=== PATIENT | female | born 1985 | race Caucasian/White ===

== ENCOUNTER 2017-12-18 10:04 | Day surgery (SDC) | payer OTHER ==
[2017-12-12 16:01] VITALS: BMI 40.0
--- NOTE | 2017-12-18 04:56 | P.GSHP ---
History of Present Illness H&P Date: 12/18/17 CHIEF COMPLAINT: Cholecystitis HISTORY OF PRESENT ILLNESS: The patient is a 32-year-old female who presents with history of epigastric including right upper quadrant abdominal pain. She underwent diagnostic studies for her gallbladder. Separately her clinical picture was consistent with cholecystitis. Now she presents for surgical intervention. PAST MEDICAL HISTORY: Please see list PAST SURGICAL HISTORY: Please see list MEDICATIONS: Please see list ALLERGIES: Denies. SOCIAL HISTORY: No illicit drug use or recent tobacco use FAMILY HISTORY: Pertinent for gallbladder disease REVIEW OF ORGAN SYSTEMS: CONSTITUTIONAL: No reports of fevers or chills. HEENT: Denies any troubles with the vision or hearing. ENDOCRINE: No reports of hypothyroidism. No diabetes. RESPIRATORY: No recent pneumonias. CARDIOVASCULAR: Denies chest pain or palpitations GI: No blood in stools or constipation. MUSCULOSKELETAL: Has occasional joint pain including back pain. NEURO: No seizure disorders or headaches. No recent stroke. PSYCH: No depression or suicidal ideation. HEMATOLOGIC: No personal or family history of DVTs or pulmonary emboli. PHYSICAL EXAM: VITAL SIGNS: Afebrile vital signs stable GENERAL: Well-developed pleasant in no acute distress. HEENT: No scleral icterus. Extraocular movements grossly intact. Moist buccal mucosa. NECK: Supple without lymphadenopathy. CHEST: Unlabored respirations. Equal bilateral excursions. CARDIOVASCULAR: Regular rate regular rhythm rhythm. Distal 2+ pulses. ABDOMEN: Soft, nondistended. Tender along the epigastrium and right upper quadrant. MUSCULOSKELETAL: No clubbing, cyanosis, or edema. NEURO: Cranial nerves II to XII within normal limits. No focal or lateralizing signs. PSYCH: Alert and oriented to person, place and time. ASSESSMENT: 1. Epigastric and right upper quadrant abdominal pain 2. Chronic cholecystitis 3. Symptomatic gallstones. PLAN: 1. Will need a robotic laparoscopic cholecystectomy possible open. Benefits and risks were described. 2. Heparin for DVT prophylaxis 5000 units. 3. Antibiotic prophylaxis. Past Medical History Past Medical History: No Reported History History of Any Multi-Drug Resistant Organisms: None Reported Past Surgical History: Adenoidectomy, Tonsillectomy Past Anesthesia/Blood Transfusion Reactions: No Reported Reaction Smoking Status: Never smoker - Past Family History Mother Family Medical History: No Reported History Medications and Allergies Home Medications Medication Instructions Recorded Confirmed Type Cetirizine HCl [Zyrtec] 10 mg PO DAILY 12/12/17 12/12/17 History Ethinyl Estradiol/Drospirenone 1 tab PO DAILY 12/12/17 12/12/17 History [Ayse 28 Tablet] Montelukast [Singulair] 10 mg PO HS 12/12/17 12/12/17 History Allergies Allergy/AdvReac Type Severity Reaction Status Date / Time No Known Allergies Allergy Verified 12/12/17 15:56
[~2017-12-18 10:04] MED LIST: DEXAMETHASONE SOD PHOSPHATE 10 MG/ML 1 ML VIAL IV ONE; HEPARIN SODIUM,PORCINE 5,000 UNIT/ML 1 ML VIAL SQ ONE; HYDROmorphone 0.5 MG/0.5 ML SYRINGE IVP PRN; INDOCYANINE GREEN 25 MG VIAL IV STA; LACTATED RINGERS 1,000 ML IV SCH; ONDANSETRON 4 MG/2 ML VIAL IVP ONE; SCOPOLAMINE 1.5MG/72HR PATCH TRANSDERM STA; ceFAZolin IN SWFI 2 GM/20 ML SYRINGE IVP ONE
[2017-12-18 11:03] VITALS: RESP 16
[2017-12-18 11:10] LABS: Basophils % (A) 0 %; Eosinophils # (A) 0.2 k/uL (0-0.7); Eosinophils % (A) 2 %; HCT 38.7 % (34.0-46.0); HGB 13.2 gm/dL (11.4-16.0); Lymphocytes # (A) 2.3 k/uL (1.0-4.8); Lymphocytes % (A) 30 %; MCH 27.6 pg (25.0-35.0); MCV 81.2 fL (80.0-100.0); Mean Platelet Volume 6.6; Monocytes # (A) 0.3 k/uL (0-1.0); Monocytes % (A) 5 %; Neutrophils # (A) 4.5 k/uL (1.3-7.7); Neutrophils % (A) 61 %; Platelet Count 284 k/uL (150-450); RBC 4.77 m/uL (3.80-5.40); WBC 7.4 k/uL (3.8-10.6)
[2017-12-18 11:24] LABS: ALT 21 U/L (9-52); AST 21 U/L (14-36); Albumin 3.7 g/dL (3.5-5.0); Alkaline Phosphatase 103 U/L (38-126); Anion Gap 12 mmol/L; Blood Urea Nitrogen 12 mg/dL (7-17); Calcium 9.7 mg/dL (8.4-10.2); Carbon Dioxide 22 mmol/L (22-30); Chloride 107 mmol/L (98-107); Glucose 85 mg/dL (74-99); Potassium 4.3 mmol/L (3.5-5.1); Sodium 141 mmol/L (137-145); Total Bilirubin 0.4 mg/dL (0.2-1.3)
[2017-12-18] MEDS ORDERED: fentaNYL (PF) 50 MCG/ML 2 ML AMP ONE (11:47)
[2017-12-18] MEDS ORDERED: GLYCOPYRROLATE 0.2 MG/ML 2 ML VIAL ONE (11:47)
[2017-12-18] MEDS ORDERED: SUCCINYLCHOLINE CHLORIDE 100 MG/5 ML SYR IV ONE (11:47)
[2017-12-18] MEDS ORDERED: ROCURONIUM BROMIDE 10 MG/ML 10 ML VIAL IV ONE (11:47)
[2017-12-18] MEDS ORDERED: LIDOCAINE 1% INJ 10MG/ML (20 ML MDV) ONE (11:47)
[2017-12-18] MEDS ORDERED: PROPOFOL 10 MG/ML 20 ML VIAL IV ONE (11:47)
[2017-12-18] MEDS ORDERED: HYDROmorphone (PF) 1 MG/ML ONE (11:47)
[2017-12-18] MEDS ORDERED: NEOSTIGMINE 1 MG/ML 10 ML VIAL ONE (11:47)
[2017-12-18] MEDS ORDERED: MIDAZOLAM 2 MG/2 ML VIAL ONE (11:47)
[2017-12-18] MEDS ORDERED: MORPHINE SULFATE 10 MG/ML SYRINGE ONE (11:47)
[2017-12-18] MEDS ORDERED: BUPIVACAINE (PF) 0.25% 30 ML VIAL SQ ONE (12:28)
[2017-12-18] MEDS ORDERED: LACTATED RINGERS 1,000 ML IV ONE (12:50)
--- NOTE | 2017-12-18 13:14 | P.OP ---
Date of Procedure: 12/18/17 Description of Procedure: SURGEON: MARYURI SORENESN MD SCREEN PRINTING CLOTH SPREADER: MIKE CAMP PREOPERATIVE DIAGNOSES: 1. Chronic cholecystitis. 2. Family history of gallbladder disease. 3. Morbid obesity due to excess calories. 4. Body mass index 40.0 5. Symptomatic gallstones. 6. Right upper quadrant abdominal pain. 7. Asthma. POSTOPERATIVE DIAGNOSES: 1. Chronic cholecystitis. 2. Family history of gallbladder disease. 3. Morbid obesity due to excess calories. 4. Body mass index 40.0 5. Symptomatic gallstones. 6. Right upper quadrant abdominal pain. 7. Asthma. OPERATION: Robotic-assisted da Ron Xi laparoscopic cholecystectomy, multiport with FIRELFY ESTIMATED BLOOD LOSS: 5 mL. SPECIMENS REMOVED: Gallbladder. COMPLICATIONS: None. OPERATIVE FINDINGS: 1. Gallstone filled with multiple 2 cm sized stones. INDICATIONS: The patient is a 32-year-old female who presents with symptomatic gallstones and chronic cholelcystitis. Surgical intervention with a laparoscopic cholecystectomy was described at length including injury to the biliary tree, bleeding, infection, need for further surgery. Informed consent was obtained. Robotic assisted laparoscopic approach was described. Benefits and risks of the procedure including but not limited to bleeding, infection, injury to the biliary tree was described. Informed consent was obtained. DESCRIPTION OF PROCEDURE: Patient was brought to the operating room, placed in supine position. After general induction, the abdomen had been prepped and draped in standard sterile fashion. The robotic da Ron SI system was primed. After a timeout protocol was performed, the patient had been prepped and draped in standard sterile fashion. The patient was injected with indocyanine green. The robot was docked along the right lateral abdomen. The patient was repositioned in reverse Trendelenburg position. Please note prior to docking of the robot; however, a 5 mm 0 degrees laparoscopic trocar entry was performed along the left upper quadrant. Next, two 8 mm robotic ports were placed along the right upper abdomen. The camera 8-mm port was maintained along the epigastrium. Another 8 mm port was placed along the left upper abdominal wall after exchanging the 5 mm port. Please note that the ports were placed at least 10 to 15 cm away from the target anatomy of the gallbladder. Using a grasper for arm 3, a grasper for arm 2, including hook cautery for arm 1 , the robotic system was docked and primed as described. Instruments were interchanged by the ophthalmic medical assistant including hook cautery, Bovie cautery scissors and clip appliers. I had sat at the console. Adhesions were identified along the infundibulum of the gallbladder and addressed using hook cautery including blunt dissection with a long forceps grasper. The gallbladder fundus was retracted over the dome of the liver. Initial attention was brought to the infundibulum which was gently retracted in the inferior lateral approach. Using a grasper, the cystic duct including the cystic artery was carefully skeletonized. FIREFLY was used to identify the cystic duct including common bile duct. All PLASTIC CLIPS were used for the entire case. Using a clip telephone clerk telegraph office 2 large clips were placed proximally, and 1 clip was placed distally along the cystic duct and then cauterized with the cautery. Again care was taken to avoid any injury to the biliary tree as the common bile duct was clearly visualized during this portion of dissection. Next, the cystic artery was cauterized. Electro-Bovie cautery was used to remove the gallbladder from the hepatic fossa without decompression of the gallbladder. Hemostasis was checked and found to be adequate. The robot was undocked. I re-scrubbed into the case. Using a 10 mm Endo Catch bag via the 8 mm port, the specimen was removed from the abdominal cavity after widening the fascia for removal of the gallbladder. Bile spillage occurred from the specimen Endo Catch bag. The port site was cleaned with diluted hydrogen peroxide and normal saline. The 8 mm port site was oversewn using 0 Vicryl including a Daryl Shelley as well. All pneumoperitoneum instruments were evacuated from the abdominal cavity. The incisions were reapproximated using 4-0 Monocryl in an interrupted subcuticular fashion. Please note along the trocar sites, local anesthetic was placed as a field block prior to insertion of all instruments. Optifoam surgical dressing was placed over the gallbladder extraction site including dilute hydrogen peroxide was used to wash the skin. Dermabond was applied to the skin. At the end of the procedure needle, sponge, and instrument count had been verified correct by the test engineering technician. The patient was transferred to postanesthesia care unit in stable condition. Intraoperative films were shared with the patient's family who were very pleased with the level of care. Plan - Discharge Summary New Discharge Prescriptions: No Action Montelukast [Singulair] 10 mg PO HS Ethinyl Estradiol/Drospirenone [Ayse 28 Tablet] 1 tab PO DAILY Cetirizine HCl [Zyrtec] 10 mg PO DAILY Discharge Medication List Cetirizine HCl [Zyrtec] 10 mg PO DAILY 12/12/17 [History] Ethinyl Estradiol/Drospirenone [Ayse 28 Tablet] 1 tab PO DAILY 12/12/17 [History] Montelukast [Singulair] 10 mg PO HS 12/12/17 [History]
[2017-12-18 13:17] VITALS: TEMP 98
[2017-12-18] MEDS ORDERED: diphenhydrAMINE 50 MG/ML 1 ML VIAL IVP ONE (13:22)
[2017-12-18] MEDS ORDERED: PROMETHAZINE INJ 25 MG/ML 1 ML VIAL IVPB ONE (13:28)
[2017-12-18] MEDS ORDERED: HYDROcodone/APAP 5-325MG 1 EACH TAB PO ONE (14:35)
[2017-12-18 14:51] VITALS: BP 99/54; PULSE 87
== END 2017-12-18 15:11 | disposition home or self-care (01) ==
LOC: OR 10:04
PROVIDERS: ATTEND Surgery Plastic and Reconstructive Surgery
DX: K80.10 Calculus of gallbladder with chronic cholecystitis without obstruction (principal); K66.0 Peritoneal adhesions (postprocedural) (postinfection); E66.01 Morbid (severe) obesity due to excess calories; Z68.41 Body mass index [BMI] 40.0-44.9, adult; J45.909 Unspecified asthma, uncomplicated; Z79.3 Long term (current) use of hormonal contraceptives; Z79.899 Other long term (current) drug therapy
CPT/HCPCS: 47562; S2900; 80053; 85025; 88304

== ENCOUNTER → 2018-06-20 | Outpatient (CLI) | payer OTHER ==
--- NOTE | 2018-06-21 10:18 | NM ---
EXAMINATION TYPE: NM thyroid image w uptake DATE OF EXAM: 06/21/2018 COMPARISON: NONE HISTORY: Joaquin thyroiditis TECHNIQUE: Thyroid iodine uptake is calculated and images performed after the oral administration of 318 uCi 1-123 Capsule. FINDINGS: There is normal distribution of activity throughout the gland. The 4 hour iodine uptake is calculated at 14.3% (normal range 8-14%). The 24-hour iodine uptake is calculated at 32.6% (normal r ronen 15-35%). IMPRESSION: thyroid scan and uptake near normal at 4 hours and normal at 24 hours, distribution of ac tivity is normal on images.
== END | disposition home or self-care (01) ==
LOC: RADNMMAIN 08:27
PROVIDERS: ATTEND Internal Medicine Endocrinology, Diabetes & Metabolism
DX: E06.3 Autoimmune thyroiditis (principal); R94.6 Abnormal results of thyroid function studies
CPT/HCPCS: 78014; A9516

== ENCOUNTER 2021-06-17 07:29 | Day surgery (SDC) | payer OTHER ==
[2021-06-10 15:01] VITALS: BMI 38.4
[~2021-06-17 07:29] MED LIST changes: -DEXAMETHASONE SOD PHOSPHATE 10 MG/ML 1 ML VIAL IV ONE; -HEPARIN SODIUM,PORCINE 5,000 UNIT/ML 1 ML VIAL SQ ONE; -HYDROmorphone 0.5 MG/0.5 ML SYRINGE IVP PRN; -INDOCYANINE GREEN 25 MG VIAL IV STA; -ONDANSETRON 4 MG/2 ML VIAL IVP ONE; -SCOPOLAMINE 1.5MG/72HR PATCH TRANSDERM STA; -ceFAZolin IN SWFI 2 GM/20 ML SYRINGE IVP ONE
[2021-06-17 08:01] VITALS: TEMP 98
[2021-06-17] MEDS ORDERED: LIDOCAINE 1% (10MG/ML) FOR IV START INTRADERMA ONE (08:16)
[2021-06-17] MEDS ORDERED: PROPOFOL 10 MG/ML 20 ML VIAL IV ONE (08:29)
--- NOTE | 2021-06-17 08:33 | P.GSHP ---
History of Present Illness H&P Date: 06/17/21 CHIEF COMPLAINT: GERD and colon screen HISTORY OF PRESENT ILLNESS: The patient is a 35-year-old female who presents with gastrointestinal bleeding. Upper and lower endoscopy were offered for further evaluation and management. PAST MEDICAL HISTORY: Please see list. PAST SURGICAL HISTORY: Please see list. MEDICATIONS: Please see list. ALLERGIES: Please see list. SOCIAL HISTORY: No illicit drug use FAMILY HISTORY: No reports of Crohn disease or ulcerative colitis. REVIEW OF ORGAN SYSTEMS: CONSTITUTIONAL: No reports of fevers or chills. GI: Denies any blood in stools or constipation. PHYSICAL EXAM: VITAL SIGNS: Stable GENERAL: Well-developed pleasant in no acute distress. HEENT: No scleral icterus. Extraocular movements grossly intact. Moist buccal mucosa. NECK: Supple without lymphadenopathy. CHEST: Unlabored respirations. Equal bilateral excursions. CARDIOVASCULAR: Regular rate and rhythm. Distal 2+ pulses. ABDOMEN: Soft, nondistended. MUSCULOSKELETAL: No clubbing, cyanosis, or edema. ASSESSMENT: 1. Gastrointestinal bleeding PLAN: 1. Recommend proceeding with an upper and lower endoscopy Past Medical History Past Medical History: Thyroid Disorder Additional Past Medical History / Comment(s): Recent blood in stool, elevated thyroid levels. History of Any Multi-Drug Resistant Organisms: None Reported Past Surgical History: Adenoidectomy, Cholecystectomy, Tonsillectomy Past Anesthesia/Blood Transfusion Reactions: No Reported Reaction Past Psychological History: No Psychological Hx Reported Smoking Status: Never smoker Past Alcohol Use History: Occasional Past Drug Use History: None Reported - Past Family History Mother Family Medical History: No Reported History Additional Family Medical History / Comment(s): Diverticulitis. Medications and Allergies Home Medications Medication Instructions Recorded Confirmed Type Cetirizine HCl [Zyrtec] 10 mg PO DAILY 12/12/17 06/10/21 History Ethinyl Estradiol/Drospirenone 1 tab PO DAILY 12/12/17 06/10/21 History [Ayse 28 Tablet] Montelukast [Singulair] 10 mg PO HS 12/12/17 06/10/21 History Methimazole [Tapazole] 5 mg PO DAILY 06/10/21 06/10/21 History Allergies Allergy/AdvReac Type Severity Reaction Status Date / Time No Known Allergies Allergy Verified 06/10/21 15:01 Surgical - Exam Vital Signs Temp Pulse Resp BP Pulse Ox 98 F 68 20 131/73 98 06/17/21 07:59 06/17/21 07:59 06/17/21 07:59 06/17/21 07:59 06/17/21 07:59
--- NOTE | 2021-06-17 09:07 | P.PCN ---
Date of Procedure: 06/17/21 Description of Procedure: PREOPERATIVE DIAGNOSIS: Gastrointestinal bleeding Morbid obesity due to excess calories, BMI 37.0 POSTOPERATIVE DIAGNOSIS: Gastrointestinal bleeding Morbid obesity due to excess calories, BMI 37.0 Gastritis without active bleeding Gastroesophageal reflux disease. Diaphragmatic hiatal hernia OPERATION: Esophagogastroduodenoscopy with biopsies along antrum. SURGEON: Emerald Lin MD ANESTHESIA: MAC. INDICATIONS: The patient is a 35-year-old female who presents with a history of reflux disease. Benefits and risks of the procedure were described. Informed consent was obtained. DESCRIPTION: The patient was brought into the endoscopy suite and laid in the left lateral decubitus position. An Olympus gastroscope was passed along the posterior oropharynx down to the distal esophagus where the squamocolumnar junction was encountered at 33 cm from the incisors. The stomach was entered and no bile reflux was found. Additional findings are listed below. Biopsies with cold forceps were obtained of the antrum. The first through third portion of the duodenum was examined and unremarkable. Retroflexion of the scope confirmed Hill grade 3 lower esophageal valve. The squamocolumnar junction demonstrated LA grade B erosive esophagitis. The stomach was desufflated. The patient tolerated the procedure well. FINDINGS: Squamocolumnar junction 33 cm from the incisors. Diaphragmatic hiatus at 36 cm. Hiatal hernia, 3 cm Hill grade 3 lower esophageal valve. LA grade B erosive esophagitis. No active duodenitis. Chronic gastritis without recent bleed RECOMMENDATIONS: Upper endoscopy as needed.
--- NOTE | 2021-06-17 09:11 | P.PCN ---
Date of Procedure: 06/17/21 Description of Procedure: PREOPERATIVE DIAGNOSIS: Gastrointestinal bleeding POSTOPERATIVE DIAGNOSIS: Gastrointestinal bleeding history Internal and external hemorrhoids, grade 1 Sigmoid colon polyp Microscopic colitis OPERATION: Colonoscopy to the ileocecal valve and appendiceal orifice, cecum Colonoscopy with hot snare polypectomy Colonoscopy with cold forceps biopsy SURGEON: Emerald Lin MD. ANESTHESIA: MAC. INDICATIONS: The patient is an 35-year-old female who presents with history of colonoscopy bleeding. Benefits and risks were described and informed consent was obtained. DESCRIPTION OF PROCEDURE: The patient had undergone MiraLAX Gatorade prep. The patient had been brought into the operating room and laid in the left lateral decubitus position. After adequate intravenous sedation, the rectum was examined with 2% lidocaine jelly. External hemorrhoids were encountered. The rectal tone was within normal limits. No lesions were palpated in the rectal vault. An Olympus colonoscope was advanced until the cecum, ileocecal valve and appendiceal orifice were clearly viewed. The prep was fair. No sigmoid diverticulosis was encountered. Colonic polyps were found and removed. Random cold forceps biopsies were obtained for microscopic colitis. Retroflexion of the scope demonstrated grade 1 internal hemorrhoids without active bleeding or inflammation. The colon was desufflated. The patient had tolerated the procedure well. Withdrawal time was over 6 minutes. FINDINGS: Aronchick preparation quality scale 2 (1-5) Internal hemorrhoids, grade 1 External hemorrhoids, grade 1. No arteriovenous malformations. No sigmoid diverticulosis Removal of 1 polyp: - Snare polypectomy 30 cm from the anal verge, 5 mm tubulovillous adenoma polyp, sigmoid colon Random biopsies obtained for microscopic colitis RECOMMENDATIONS: Repeat colonoscopy in 5 years, 2025 Plan - Discharge Summary Discharge Rx Participant: No New Discharge Prescriptions: Continue Montelukast [Singulair] 10 mg PO HS Ethinyl Estradiol/Drospirenone [Ayse 28 Tablet] 1 tab PO DAILY Cetirizine HCl [Zyrtec] 10 mg PO DAILY Methimazole [Tapazole] 5 mg PO DAILY Discharge Medication List Cetirizine HCl [Zyrtec] 10 mg PO DAILY 12/12/17 [History] Ethinyl Estradiol/Drospirenone [Ayse 28 Tablet] 1 tab PO DAILY 12/12/17 [History] Montelukast [Singulair] 10 mg PO HS 12/12/17 [History] Methimazole [Tapazole] 5 mg PO DAILY 06/10/21 [History] Follow up Appointment(s)/Referral(s): Emerald Lni MD [STAFF PHYSICIAN] - 07/01/21 Patient Instructions/Handouts: *[facility] - (Anesthesia) Endoscopy Discharge Instructions, Hiatal Hernia (IP), Colonoscopy (DC) Activity/Diet/Wound Care/Special Instructions: Repeat colonoscopy 5 years, 2025 Discharge Disposition: HOME SELF-CARE
[2021-06-17 09:15] VITALS: RESP 16
[2021-06-17 09:42] VITALS: BP 124/85; PULSE 76
== END 2021-06-17 10:23 | disposition home or self-care (01) ==
LOC: ORWHC2ENDO 07:29
PROVIDERS: ATTEND Surgery Plastic and Reconstructive Surgery
DX: K44.9 Diaphragmatic hernia without obstruction or gangrene (principal); K63.5 Polyp of colon; K64.0 First degree hemorrhoids; K64.4 Residual hemorrhoidal skin tags; K21.9 Gastro-esophageal reflux disease without esophagitis; E07.9 Disorder of thyroid, unspecified; E66.01 Morbid (severe) obesity due to excess calories; Z68.37 Body mass index [BMI] 37.0-37.9, adult; K29.50 Unspecified chronic gastritis without bleeding; Z90.49 Acquired absence of other specified parts of digestive tract; Z79.899 Other long term (current) drug therapy
CPT/HCPCS: 45380; 45385; 43239; 81025; 88305; J2704

== ENCOUNTER → 2021-11-26 | Outpatient (CLI) | payer OTHER ==
--- NOTE | 2021-11-30 08:53 | MM ---
Reason for exam: screening (asymptomatic). Baseline mammogram. History: Patient is nulliparous. Family history of breast cancer in maternal grandmother at age 70, breast cancer in maternal aunt at age 51, and breast cancer in maternal aunt. Physical Findings: Nurse did not find any significant physical abnormalities on exam. MG 3D Screening Mammo W/Cad Bilateral CC and MLO view(s) were taken. There are scattered fibroglandular densities. Focal asymmetry right upper outer quadrant. ASSESSMENT: Probably benign, BI-RAD 3 RECOMMENDATION: Follow-up diagnostic mammogram of the right breast in 6 months.
== END | disposition home or self-care (01) ==
LOC: RADMAMWWP 09:26
PROVIDERS: ATTEND Family Medicine
DX: Z12.31 Encounter for screening mammogram for malignant neoplasm of breast (principal); Z80.3 Family history of malignant neoplasm of breast
CPT/HCPCS: 77063; 77067

== ENCOUNTER → 2022-05-09 | Outpatient (CLI) | payer OTHER ==
--- NOTE | 2022-05-09 14:45 | USB ---
Reason for Exam: Additional evaluation requested from abnormal screening. Patient History: Menarche at age 13. Patient has no children. Maternal grandmother had breast cancer, age 70. Maternal aunt (kimberlee) had breast cancer, age 53. Maternal aunt (eleno) had breast cancer, age 65. Risk Values: Gabby 5 year model risk: 0.4%. NCI Lifetime model risk: 11.3%. Technique: Method: Targeted. Prior Study Comparison: 11/26/2021 Bilateral Screening Mammogram, [facility]. Findings: The upper outer quadrant of the right breast, the axilla of the right breast and the retroareolar of the right breast were scanned. Targeted ultrasound upper outer quadrant right breast 9:00 to 12:00. No solid or cystic lesion is seen to correspond to the patient's global asymmetry. Patient can resume annual screening. Overall Assessment: Benign, BI-RAD 2 Management: Screening Mammogram of both breasts in 6 months. 1. Patient should continue monthly self breast exams. 2. A clinical breast exam by your physician is recommended on an annual basis. 3. This exam should not preclude additional follow-up of suspicious palpable abnormalities. Electronically signed and approved by: Flavia Ivan M.D. Radiologist
--- NOTE | 2022-05-17 13:51 | MM ---
Reason for Exam: Follow-up at short interval from prior study. Last screening mammogram was performed 6 month(s) ago. Patient History: Menarche at age 13. Patient has no children. Maternal grandmother had breast cancer, age 70. Maternal aunt (kimberlee) had breast cancer, age 53. Maternal aunt (eleno) had breast cancer, age 65. Last menstrual period: 05/06/2022 Risk Values: Gabby 5 year model risk: 0.4%. NCI Lifetime model risk: 11.3%. Prior Study Comparison: 11/26/2021 Bilateral Screening Mammogram, [facility]. Tissue Density: Right: There are scattered fibroglandular densities. Findings: Analyzed By CAD. Unchanged global asymmetry upper outer quadrant right breast. Disperses on additional lateral view. No persisting abnormality on 3-D images and no change from prior exam. Overall Assessment: Benign, BI-RAD 2 Management: Screening Mammogram of both breasts in 6 months. 1. Patient should continue monthly self breast exams. 2. A clinical breast exam by your physician is recommended on an annual basis. 3. This exam should not preclude additional follow-up of suspicious palpable abnormalities. Results were given to the patient verbally at the time of exam. Electronically signed and approved by: Flavia Ivan M.D. Radiologist
== END | disposition home or self-care (01) ==
LOC: RADMAMWWP 13:19
PROVIDERS: ATTEND Family Medicine
DX: R92.8 Other abnormal and inconclusive findings on diagnostic imaging of breast (principal); Z80.3 Family history of malignant neoplasm of breast
CPT/HCPCS: 77061; 77065

== ENCOUNTER 2023-06-23 16:26 | Emergency (ER) | payer OTHER ==
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
--- NOTE | 2023-06-23 17:13 | XR ---
EXAMINATION TYPE: XR chest 2V DATE OF EXAM: 06/23/2023 COMPARISON: NONE HISTORY: Chest pain TECHNIQUE: Frontal and lateral views of the chest are obtained. FINDINGS: There is no focal air space opacity. Incidental azygos lobe infiltrate right upper lobe. No evidence for pneumothorax. No pleural effusion. The cardiac silhouette size is within normal limits. The osseous structures are grossly intact. IMPRESSION: 1. No acute cardiopulmonary process.
[2023-06-23] MEDS ORDERED: IBUPROFEN 600 MG TAB PO STA (17:26)
[2023-06-23 18:08] VITALS: BP 135/88; PULSE 87; RESP 18; TEMP 98
== END 2023-06-23 18:26 | disposition home or self-care (01) ==
LOC: EC 16:26
DX: R07.89 Other chest pain (principal); V43.52XA Car driver injured in collision with other type car in traffic accident, initial encounter; Y92.410 Unspecified street and highway as the place of occurrence of the external cause
CPT/HCPCS: 71046; 99284

== ENCOUNTER → 2023-11-29 | Outpatient (CLI) | payer OTHER ==
--- NOTE | 2023-11-30 20:53 | MM ---
Reason for Exam: Screening (asymptomatic). Last screening mammogram was performed 12 month(s) ago. Patient History: Menarche at age 13. Patient has no children. Currently using Hormonal Contraceptives, starting at age 32. Maternal grandmother had breast cancer, age 70. Maternal aunt (kimberlee) had breast cancer, age 53. Maternal aunt (eleno) had breast cancer, age 65. Last menstrual period: 11/15/2023 Risk Values: Gabby 5 year model risk: 0.5%. NCI Lifetime model risk: 11.2%. Prior Study Comparison: 11/26/2021 Bilateral Screening Mammogram, [facility]. 05/09/2022 Right MG 3D diag mammo w/cad RT, [facility]. 11/28/2022 Bilateral MG 3D screening mammo w/cad, [facility]. Tissue Density: There are scattered fibroglandular densities. Findings: Analyzed By CAD. Unchanged focal asymmetry right upper outer quadrant. There is no suspicious group of microcalcifications or new suspicious mass in either breast. Overall Assessment: Benign, BI-RAD 2 Management: Screening Mammogram of both breasts in 1 year. . Patient should continue monthly self-breast exams. A clinical breast exam by your physician is recommended on an annual basis. This exam should not preclude additional follow-up of suspicious palpable abnormalities. Note on Gabby scores and lifetime risk: 1. A Gabby score greater than 3% is considered moderate risk. If this is the case, consider specialist referral to assess eligibility for a risk reducing agent. 2. If overall lifetime risk for the development of breast cancer is 20% or higher, the patient may qualify for future screening with alternating mammogram and breast MRI. Electronically signed and approved by: Flavia Ivan M.D. Radiologist
== END | disposition home or self-care (01) ==
LOC: RADMAMWWP 07:53
PROVIDERS: ATTEND Family Medicine
DX: Z12.31 Encounter for screening mammogram for malignant neoplasm of breast (principal); Z80.3 Family history of malignant neoplasm of breast
CPT/HCPCS: 77063; 77067

== ENCOUNTER → 2024-06-24 | Outpatient (CLI) | payer OTHER ==
--- NOTE | 2024-06-24 11:14 | FL ---
EXAMINATION TYPE: FL barium swallow DATE OF EXAM: 06/24/2024 COMPARISON: None HISTORY: Retrosternal chest pain TECHNIQUE: A double air contrast UGI study is performed. FINDINGS: Esophagus dilates to normal caliber and has a normal contour to the gastroesophageal junction. Gastro esophageal junction opens to normal caliber. No intraluminal or extramural defects are evident. No hi atal hernia is evident. In the horizontal drinking position there is no secondary or tertiary contractions evident. No reflux was evident. IMPRESSION: 1. Unremarkable esophagram. [facility], , 06/24/2024 11:11 AM
== END | disposition home or self-care (01) ==
LOC: RADUSWWP 07:44
PROVIDERS: ATTEND Surgery Plastic and Reconstructive Surgery
DX: K44.9 Diaphragmatic hernia without obstruction or gangrene
CPT/HCPCS: 74220

== ENCOUNTER 2024-07-17 08:25 | Day surgery (SDC) | payer OTHER ==
[2024-07-15 14:42] VITALS: BMI 37.5
--- NOTE | 2024-07-17 08:02 | P.GSHP ---
History of Present Illness H&P Date: 07/17/24 CHIEF COMPLAINT: GERD HISTORY OF PRESENT ILLNESS: The patient is a 38-year-old female who presents reports gastroesophageal reflux disease. Upper endoscopy was offered for further evaluation and management. PAST MEDICAL HISTORY: Please see list. PAST SURGICAL HISTORY: Please see list. MEDICATIONS: Please see list. ALLERGIES: Please see list. SOCIAL HISTORY: No illicit drug use FAMILY HISTORY: No reports of Crohn disease or ulcerative colitis. REVIEW OF ORGAN SYSTEMS: CONSTITUTIONAL: No reports of fevers or chills. GI: Denies any blood in stools or constipation. PHYSICAL EXAM: VITAL SIGNS: Stable GENERAL: Well-developed and pleasant in no acute distress. HEENT: No scleral icterus. Extraocular movements grossly intact. Moist buccal mucosa. NECK: Supple without lymphadenopathy. CHEST: Unlabored respirations. Equal bilateral excursions. CARDIOVASCULAR: Regular rate and rhythm. Distal 2+ pulses. ABDOMEN: Soft, nondistended. MUSCULOSKELETAL: No clubbing, cyanosis, or edema. ASSESSMENT: 1. Gastroesophageal reflux disease PLAN: 1. Recommend proceeding with an upper endoscopy Past Medical History Past Medical History: Thyroid Disorder Additional Past Medical History / Comment(s): Recent blood in stool, elevated thyroid levels. chest pressure possibly hiatal hernia History of Any Multi-Drug Resistant Organisms: None Reported Past Surgical History: Adenoidectomy, Cholecystectomy, Tonsillectomy Additional Past Surgical History / Comment(s): colonoscopy, egd Past Anesthesia/Blood Transfusion Reactions: No Reported Reaction Additional Past Anesthesia/Blood Transfusion Reaction / Comment(s): no blood transfusion Smoking Status: Never smoker - Past Family History Mother Family Medical History: No Reported History Additional Family Medical History / Comment(s): Diverticulitis. Medications and Allergies Home Medications Medication Instructions Recorded Confirmed Type Ethinyl Estradiol/Drospirenone 1 tab PO DAILY 12/12/17 07/15/24 History [Ayse 28 Tablet] Montelukast [Singulair] 10 mg PO HS 12/12/17 07/15/24 History methIMAzole [Tapazole] 5 mg PO DAILY 06/10/21 07/15/24 History Loratadine [Claritin] 10 mg PO DAILY 07/15/24 07/15/24 History Allergies Allergy/AdvReac Type Severity Reaction Status Date / Time omeprazole Allergy Chest Pain Verified 07/15/24 14:37
[~2024-07-17 08:25] MED LIST changes: -LACTATED RINGERS 1,000 ML IV SCH; +LIDOCAINE 1% (10MG/ML) FOR IV START INTRADERMA PRN
[2024-07-17] MEDS: LACTATED RINGERS 1,000 ML IV SCH (09:02)
[2024-07-17] MEDS: IV FLUID CONTINUATION 1,000 ML IV ONE ×2 (09:03→09:16)
[2024-07-17 09:06] VITALS: TEMP 97.4
[2024-07-17] MEDS ORDERED: LIDOCAINE 2% (PF) 20 MG/ML 5 ML VIAL ONE (09:17)
[2024-07-17] MEDS ORDERED: PROPOFOL 10 MG/ML 20 ML VIAL IV ONE (09:17)
[2024-07-17 09:58] VITALS: BP 137/86; PULSE 66; RESP 20
--- NOTE | 2024-07-17 10:19 | P.PCN ---
Date of Procedure: 07/17/24 Description of Procedure: PREOPERATIVE DIAGNOSIS: Gastroesophageal reflux disease. Morbid obesity. Atypical chest pain POSTOPERATIVE DIAGNOSIS: Gastroesophageal reflux disease. Morbid obesity. Gastritis. Diaphragmatic hiatal hernia OPERATION: Esophagogastroduodenoscopy with biopsies along esophagus, antrum and duodenum SURGEON: Emerald Lin MD ANESTHESIA: MAC. INDICATIONS: The patient is a 38-year-old female who presents with reflux disease. Benefits and risks of the procedure were described. Informed consent was obtained. DESCRIPTION: The patient was brought into the endoscopy suite and laid in the left lateral decubitus position. An Olympus gastroscope was passed along the posterior o ropharynx down to the distal esophagus where the squamocolumnar junction was encountered at 34 cm from the incisors. The stomach was entered and bile reflux was found. Additional findings are listed below. Biopsies with cold forceps were obtained of the antrum. The first through third portion of the duodenum was examined. Retroflexion of the scope confirmed Hill grade 3 lower esophageal valve. The squamocolumnar junction demonstrated LA grade C erosive esophagitis. The stomach was desufflated. The patient tolerated the procedure well. FINDINGS: Squamocolumnar junction 34 cm from the incisors. Diaphragmatic hiatus at 36 cm. Hiatal hernia, 2 cm Hill grade 3 lower esophageal valve. LA grade C erosive esophagitis. Biopsies obtained Biopsies obtained of the duodenum. Chronic gastritis with biopsies obtained. RECOMMENDATIONS: Recommend diaphragmatic hiatal hernia repair. Plan - Discharge Summary Discharge Rx Participant: No New Discharge Prescriptions: Continue Montelukast [Singulair] 10 mg PO HS Ethinyl Estradiol/Drospirenone [Ayse 28 Tablet] 1 tab PO DAILY Famotidine 20 mg PO BID methIMAzole [Tapazole] 5 mg PO DAILY Loratadine [Claritin] 10 mg PO DAILY Sertraline [Zoloft] 1 tab PO HS Discharge Medication List Ethinyl Estradiol/Drospirenone [Ayse 28 Tablet] 1 tab PO DAILY 12/12/17 [History] Montelukast [Singulair] 10 mg PO HS 12/12/17 [History] methIMAzole [Tapazole] 5 mg PO DAILY 06/10/21 [History] Loratadine [Claritin] 10 mg PO DAILY 07/15/24 [History] Famotidine 20 mg PO BID 07/17/24 [History] Sertraline [Zoloft] 1 tab PO HS 07/17/24 [History] Follow up Appointment(s)/Referral(s): Emerald Lin MD [STAFF PHYSICIAN] - 08/13/24 2:30 pm Patient Instructions/Handouts: Hiatal Hernia (DC) Discharge Disposition: HOME SELF-CARE
== END 2024-07-17 10:59 | disposition home or self-care (01) ==
LOC: ORWHC2ENDO 08:25
PROVIDERS: ATTEND Surgery Plastic and Reconstructive Surgery
DX: K44.9 Diaphragmatic hernia without obstruction or gangrene
CPT/HCPCS: 43239; 81025; 88305

== ENCOUNTER → 2025-02-14 | Outpatient (CLI) | payer OTHER ==
--- NOTE | 2025-02-14 08:48 | MM ---
Reason for Exam: Screening (asymptomatic). Last mammogram was performed 1 year(s) and 3 month(s) ago. Patient History: Menarche at age 13. Patient has no children. Premenopausal. Currently using Hormonal Contraceptives, starting at age 32. Maternal grandmother had breast cancer, age 70. Maternal aunt (kimberlee) had breast cancer, age 53. Maternal aunt (eleno) had breast cancer, age 65. Last menstrual period: 02/05/2025 Risk Values: Gabby 5 year model risk: 0.6%. NCI Lifetime model risk: 11.1%. Prior Study Comparison: 11/26/2021 Bilateral Screening Mammogram, [facility]. 05/09/2022 Right MG 3D diag mammo w/cad RT, [facility]. 11/28/2022 Bilateral MG 3D screening mammo w/cad, [facility]. 11/29/2023 Bilateral MG 3D screening mammo w/cad, [facility]. Tissue Density: There are scattered areas of fibroglandular density. Findings: Analyzed By CAD. Right breast: There is no suspicious group of microcalcifications or new suspicious mass. Left breast: There is no suspicious group of microcalcifications or new suspicious mass. Overall Assessment: Negative, BI-RAD 1 Management: Screening Mammogram of both breasts in [address] [facility] will attempt to contact patient to return for supplemental views and ultrasound if indicated. Patient should continue monthly self-breast exams. A clinical breast exam by your physician is recommended on an annual basis. This exam should not preclude additional follow-up of suspicious palpable abnormalities. Note on Gabby scores and lifetime risk: 1. A Gabby score greater than 3% is considered moderate risk. If this is the case, consider specialist referral to assess eligibility for a risk reducing agent. 2. If overall lifetime risk for the development of breast cancer is 20% or higher, the patient may qualify for future screening with alternating mammogram and breast MRI. [facility], , 02/14/2025 8:46 AM. Electronically signed and approved by: Vic Marsh DO
== END | disposition home or self-care (01) ==
LOC: RADMAMWWP 07:23
PROVIDERS: ATTEND Family Medicine
DX: Z12.31 Encounter for screening mammogram for malignant neoplasm of breast (principal); R92.323 Mammographic fibroglandular density, bilateral breasts; Z80.3 Family history of malignant neoplasm of breast; Z79.3 Long term (current) use of hormonal contraceptives
CPT/HCPCS: 77063; 77067